=== PATIENT | male | born 1980 | race Caucasian/White ===

== ENCOUNTER 2021-02-22 12:18 | Emergency (ER) | payer BC ==
[2021-02-22 13:21] LABS: HEMOGLOBIN 13.7 gm/dl (14.0-17.5); RED BLOOD COUNT 4.5 M/UL (4.20-5.50); WHITE BLOOD COUNT 9.2 K/UL (4.5-11.0)
[2021-02-22 14:00] LABS: BUN/CREATININE RATIO 12 (0-10)
== END 2021-02-22 15:00 | disposition home or self-care (01) ==
LOC: ER1 12:18
PROVIDERS: Emergency Medicine
DX: I48.91 Unspecified atrial fibrillation (principal); Z20.822 Contact with and (suspected) exposure to COVID-19
CPT/HCPCS: 71045; 80053; 84439; 84443; 84484; 85025; 93005; 99285; J2704; U0002